=== PATIENT | female | born 1995 | race Caucasian/White ===

== ENCOUNTER 2020-08-07 08:29 | Outpatient (CLI) | payer OTHER ==
--- NOTE | 2020-08-09 09:18 | MRI Report ---
PROCEDURE: Brain W/O INDICATIONS: MIGRAINES TECHNIQUE: Noncontrast axial T1 spin echo, axial T2 fast spin echo, sagittal and axial FLAIR, coronal T2 fast sp in echo, axial gradient echo, axial diffusion and ADC through the brain. COMPARISON: None. FINDINGS: Image quality: Excellent. CSF Spaces: Basal cisterns are patent. No extra-axial fluid collections. Ventricles are normal in size and shape. Brain: No intracranial masses or hemorrhage. /white matter interface is normal. Brainstem appe ars normal. Diffusion-weighted images demonstrate no acute ischemic insult. No chronic ischemic ins ults. Normal intravascular flow voids are present. Skull and face: Calvarium has normal marrow signal. Orbits appear normal. Sinuses: Sinuses and mastoids are clear. IMPRESSION: No acute [id number] significant abnormality to explain headaches. Reviewed by: Kosta Suggs MD on 08/09/2020 9:16 AM PDT Approved by: Kosta Suggs MD on 08/09/2020 9:16 AM PDT Station ID: [id number]
== END 2020-08-07 08:30 | disposition home or self-care (01) ==
LOC: DI 08:29
DX: G43.109 Migraine with aura, not intractable, without status migrainosus (principal)
CPT/HCPCS: 70551